=== PATIENT | female | born 1950 | race Two or more races ===

== ENCOUNTER 2024-12-09 12:41 | Emergency (ER) | payer MEDICARE, OTHER ==
[~2024-12-09] VITALS: Ht 162.6 cm; Wt 89.0 kg
[2024-12-09 13:05] VITALS: O2SAT 98
[2024-12-09 16:37] VITALS: BP 151/72; PULSE 77; RESP 18; TEMP 36.9; O2SAT 99
[2024-12-09] MEDS ORDERED: IOHEXOL-300 100 ML BOTTLE ONE (23:01)
== END 2024-12-09 16:38 | disposition home or self-care (01) ==
LOC: ER 12:41
DX: R51.9 Headache, unspecified (principal); E11.9 Type 2 diabetes mellitus without complications; W22.03XA Walked into furniture, initial encounter; Y93.89 Activity, other specified; Y92.89 Other specified places as the place of occurrence of the external cause; Y99.8 Other external cause status
CPT/HCPCS: 99285; 70460; Q9967; 99284

== ENCOUNTER 2025-06-18 18:32 | Inpatient (IN) | payer OTHER ==
[~2025-06-18] VITALS: Ht 167.6 cm; Wt 91.2 kg
[2025-06-18 18:40] VITALS: O2SAT 100
[2025-06-18 21:07] LABS: BASOPHILS % 0.4 % (0.0-2.0); EOSINOPHILS % 1.5 % (0.0-5.0); HEMATOCRIT. 42.3 % (36.0-48.0); HEMOGLOBIN. 13.9 g/dL (12.0-16.0); LYMPHOCYTES % 28.9 % (20.0-50.0); MEAN PLATELET VOLUME 7.2 fl (7.4-10.4); MONOCYTES % 6.0 % (2.0-8.0); NEUTROPHILS % 63.2 % (40.0-76.0); PLATELET 243 x1000/uL (130-400); RED BLOOD CELL COUNT 4.63 mill/uL (4.2-5.4); RED CELL DISTRIBUTION WIDTH 14.0 % (11.6-14.6)
[2025-06-18] MEDS: NITROGLYCERIN 0.4MG TABLET SL SL ONE (21:14)
[2025-06-18] MEDS: ASPIRIN 81MG TABLET PO ONE (21:14)
[2025-06-18 21:19] LABS: CREATININE 0.9 mg/dL (0.6-1.0); UREA NITROGEN BLOOD 10 mg/dL (9-23)
[2025-06-18 21:20] LABS: TROPONIN I HIGH SENSITIVITY 17 ng/L (3.0-34)
[2025-06-18 23:15] LABS: TROPONIN I HIGH SENSITIVITY 16 ng/L (3.0-34)
[2025-06-19 02:24] VITALS: BP 128/56; PULSE 65; RESP 17; TEMP 36.3624
[2025-06-19] MEDS ORDERED: NITR0.4T49 SL (02:42)
[2025-06-19] MEDS ORDERED: DILT30TA3 MT (02:43)
[2025-06-19] MEDS ORDERED: GLIP10TA17 PO (02:46)
[2025-06-19] MEDS ORDERED: ATOR20TA PO (02:47)
[2025-06-19] MEDS ORDERED: DULO20CA18 PO (02:48)
[2025-06-19] MEDS ORDERED: DEXTROSE 50% WATER 50ML SYRINGE IV PRN (04:45)
[2025-06-19] MEDS ORDERED: NITROGLYCERIN 0.4MG TABLET SL SL PRN (05:00)
[2025-06-19] MEDS: DILTIAZEM HCL 30MG TABLET PO SCH (05:50)
[2025-06-19] MEDS: HYDROCODONE/ACETAMINOPHEN 5/325MG TABLET PO PRN (05:50)
[2025-06-19] MEDS: BLOOD SUGAR DIAGNOSTIC STRIP TEST SCH (06:32)
[2025-06-19] MEDS: INSULIN LISPRO 100 UNITS/ML SUBCUT SCH (06:32)
[2025-06-19 07:17] LABS: HEPATITIS C AB NON REACTIVE (Neg) (Negative)
[2025-06-19 08:00] VITALS: BP 103/59; PULSE 66; RESP 17; TEMP 36.3; O2SAT 97
[2025-06-19] MEDS: GLIPIZIDE 5MG TABLET PO SCH (09:13)
[2025-06-19] MEDS: DULOXETINE HCL 20MG DR CAPSULE PO SCH (09:13)
[2025-06-19 11:26] LABS: BASOPHILS % 0.4 % (0.0-2.0); EOSINOPHILS % 2.3 % (0.0-5.0); HEMATOCRIT. 39.0 % (36.0-48.0); HEMOGLOBIN. 12.8 g/dL (12.0-16.0); LYMPHOCYTES % 27.7 % (20.0-50.0); MEAN PLATELET VOLUME 7.2 fl (7.4-10.4); MONOCYTES % 7.4 % (2.0-8.0); NEUTROPHILS % 62.2 % (40.0-76.0); PLATELET 202 x1000/uL (130-400); RED BLOOD CELL COUNT 4.27 mill/uL (4.2-5.4); RED CELL DISTRIBUTION WIDTH 13.9 % (11.6-14.6)
[2025-06-19] MEDS ORDERED: ACETAMINOPHEN 325MG TABLET PO PRN (11:30)
[2025-06-19] MEDS ORDERED: DOCUSATE SODIUM 100MG CAPSULE PO PRN (11:30)
[2025-06-19] MEDS ORDERED: CLONIDINE 0.1MG TABLET PO PRN (11:30)
[2025-06-19] MEDS ORDERED: IPRATROPIUM/ALBUTEROL 0.5-3(2.5)MG/3ML NEB HHN PRN (11:30)
[2025-06-19 12:00] VITALS: BP 136/67; PULSE 62; RESP 18; TEMP 36.2; O2SAT 97
[2025-06-19 12:38] VITALS: BP 136/67; PULSE 62; RESP 18; TEMP 36.2; O2SAT 97
[2025-06-19 16:00] VITALS: BP 112/53; PULSE 67; RESP 18; TEMP 36.3; O2SAT 98
[2025-06-19] MEDS: ONDANSETRON HCL 4MG/2ML INJ IV PRN (18:34)
[2025-06-19 20:00] VITALS: BP 116/62; PULSE 81; RESP 18; TEMP 36.6; O2SAT 98
[2025-06-19] MEDS: ATORVASTATIN CALCIUM 20MG TABLET PO SCH (21:03)
[2025-06-20] VITALS: BP 121/62; PULSE 73; RESP 19; TEMP 36.7; O2SAT 99
[2025-06-20 04:00] VITALS: BP 121/62; PULSE 76; RESP 18; TEMP 36.6; O2SAT 97
[2025-06-20 08:00] VITALS: BP 122/66; PULSE 71; RESP 16; TEMP 36.2; O2SAT 97
[2025-06-20 09:47] LABS: BASOPHILS % 0.4 % (0.0-2.0); EOSINOPHILS % 1.4 % (0.0-5.0); HEMATOCRIT. 41.2 % (36.0-48.0); HEMOGLOBIN. 13.8 g/dL (12.0-16.0); LYMPHOCYTES % 22.9 % (20.0-50.0); MEAN PLATELET VOLUME 8.8 fl (7.4-10.4); MONOCYTES % 5.1 % (2.0-8.0); NEUTROPHILS % 70.2 % (40.0-76.0); PLATELET 291 x1000/uL (130-400); RED BLOOD CELL COUNT 4.52 mill/uL (4.2-5.4); RED CELL DISTRIBUTION WIDTH 14.0 % (11.6-14.6)
[2025-06-20 10:05] LABS: CREATININE 0.9 mg/dL (0.6-1.0); UREA NITROGEN BLOOD 9 mg/dL (9-23)
[2025-06-20 12:00] VITALS: BP 127/67; PULSE 70; RESP 17; TEMP 36.3; O2SAT 98
[2025-06-20] MEDS ORDERED: LORAZEPAM 2MG/ML UD SYRINGE IV NR (12:00)
[2025-06-20 16:00] VITALS: BP 126/62; PULSE 68; RESP 17; TEMP 36.3; O2SAT 97
[2025-06-20 20:00] VITALS: BP 130/70; PULSE 70; RESP 20; TEMP 37.1; O2SAT 98
[2025-06-21] VITALS: BP 15/51; PULSE 75; RESP 18; TEMP 36.4; O2SAT 98
[2025-06-21 04:00] VITALS: BP 115/66; PULSE 66; RESP 18; TEMP 36.6; O2SAT 98
[2025-06-21 08:00] VITALS: BP 127/65; PULSE 68; RESP 20; TEMP 36.4; O2SAT 97
[2025-06-21 11:52] VITALS: BP 132/68; PULSE 73; RESP 18; TEMP 36.1; O2SAT 98
[2025-06-21 16:00] VITALS: BP 128/70; PULSE 71; RESP 18; TEMP 36.2; O2SAT 98
[2025-06-21 20:00] VITALS: BP_SYST 138; BP_DIAS 8; BP_DIAS 80; PULSE 74; RESP 18; TEMP 36.8; O2SAT 100; O2SAT 98
[2025-06-22] VITALS (7 sets, daily range): BP systolic 116–130; BP diastolic 59–73; PULSE 72–82; RESP 18–20; TEMP 36.2–36.5; O2SAT 96–100
[2025-06-22] MEDS: ACETAMINOPHEN 325MG TABLET PO PRN (09:27)
== END 2025-06-22 18:37 | disposition home or self-care (01) | DRG 552 ==
LOC: ER 18:32 → 6WST 06-19 00:08 → EDBEDREQ 06-19 00:10 → EDBEDREQTM 06-19 00:10 → EDBEDREQDT 06-19 00:10 → ENRESERV 06-19 00:22
PROVIDERS: ADMIT Internal Medicine; ATTEND Internal Medicine
DX: M48.061 Spinal stenosis, lumbar region without neurogenic claudication (principal); E11.9 Type 2 diabetes mellitus without complications; M47.897 Other spondylosis, lumbosacral region; E78.00 Pure hypercholesterolemia, unspecified; Z96.649 Presence of unspecified artificial hip joint; I10 Essential (primary) hypertension; Z79.84 Long term (current) use of oral hypoglycemic drugs; Z79.899 Other long term (current) drug therapy; Z86.73 Personal history of transient ischemic attack (TIA), and cerebral infarction without residual deficits
CPT/HCPCS: 36415; 71045; 72131; 72148; 80048; 82962; 83036; 84484; 85025; 86705; 87340; 93005; 99285; J1815; J2405